=== PATIENT | female | born 1945 | race Caucasian/White ===

== ENCOUNTER 2017-03-17 08:05 | Observation (INO) | payer OTHER, BC ==
[~2017-03-17] VITALS: Ht 160 cm; Wt 99.6 kg
--- NOTE | ~2017-03-17 | CATHLAB ---
[facility] [address] [place] [address] INVASIVE PROCEDURE REPORT Name: RADHAMANDOASHA PERLA Room #: 218-P [facility] [place] ..#: [id number] Admission: 03/17/17 Attend Phys: Chance Manning Discharge: 03/18/17 Date of : 49 Date of Service: 03/23/17 1033 Report #: [id number] THIS REPORT FOR: //name// CC: Chance Rankin DATE OF SERVICE: 03/17/2017 PROCEDURE INDICATION: This is a 72-year-old female patient with cardiomyopathy, optimized on guideline-directed medical therapy for greater than 3 months with ejection fraction persisting at 135% with dyspnea, fatigue and tiredness. PROCEDURES: 1. Left coronary angiography. 2. Biventricular pacer ICD implantation. 3. Supervision of conscious sedation. HAND KISS SETTER: Chance Rajput M.D. BRIEF DESCRIPTION OF PROCEDURE: After informed consent was obtained, the patient was brought to the cardiac catheterization laboratory in stable condition. The right groin was prepped and draped in usual sterile manner and an angiography was performed of the left coronary ostium demarcating a ____ venous component to identify the origin of the coronary sinus ostium. Subsequent to this, the chest had been prepped and draped in sterile manner and a venogram was performed of the left upper extremity to identify the subclavian vein after several attempts without venography failed. Subsequent to identifying the subclavian vein, had 3 separate puncturing using micropuncture and a Seldinger technique, bloodless sheaths were placed. Under fluoroscopic visualization, a [employer] right ventricular lead, model 7122Q-58, serial #[id number] was positioned in the right ventricular septum and secured with active fixation. Capture and sensing thresholds were verified and will be documented below. Subsequent to this, a guiding catheter was then advanced and the coronary ostium was cannulated. Injection with contrast demonstrated a coronary sinus venogram and identified the cardiac veins. Subsequent to this, under fluoroscopic visualization, utilizing standard technique and equipments, a [employer] left ventricular quadripolar lead, model #1458Q-86, serial #[id number] was then placed at capturing and sensing thresholds. Once this was in place and the peel-away sheath was removed, the right atrial lead was then engaged into the right atrial appendage. This was a [employer] model 2088TC-46, serial #[id number] with adequate capture and sensing thresholds. A pocket was then developed and the generator was a [employer] model QS3972-48O, serial #[id number]. Pocket skin, device and leads were all irrigated with an antibiotic solution prior to placement in the pocket. All bleeders were then cauterized prior to this. Pocket was then closed in 3-layer fashion with the deeper two layer being running locking nonabsorbable suture and the skin being closed with [address] [address] INVASIVE PROCEDURE REPORT Name: RADHAMANDO PERLA Room #: 218-P DIS IN M.R.#: [id number] Admission: 03/17/17 Attend Phys: Chance Manning Discharge: 03/18/17 Date of : 49 Date of Service: 03/23/17 1033 Report #: [id number] 3-0 running subcuticular. Steri-Strips, 4 x 4's, Op-Site was then placed. The patient tolerated the procedure well. There were no complications. ESTIMATED BLOOD LOSS: 10 mL. FINDINGS: 1. Right atrial lead: P-wave 4.1 millivolts, impedance 503 ohms, threshold 0.5 volts at a pulse width of 0.5 milliseconds. 2. Right ventricular lead: R-wave 14.8, impedance 744 ohms, threshold 1, pulse width 0.5. 3. Left ventricular lead: Impedance 749, capture threshold of 1 at a pulse width of 0.5. Those were direct measurements, which were then rechecked after closing. The recheck demonstrated a right atrial, right ventricular and left ventricular thresholds of 0.75, 0.5 and 0.5 respectively at pulse width of 0.5. Impedances remained satisfactory. MODE SETTINGS: DDDR with maximum VT cut offs at 171, 187 and VF at 214. The base and maximum sensory rates were 60 and 120. By: [id number] Chance Rajput MD /nt
[~2017-03-17 08:05] MED LIST: ALDACTONE25 MG PO; ATORVASTATIN CA40 MG PO; BENICAR40 MG PO; COREG25 MG PO; COZAAR 50 MG TA50 M2 PO; EFFEXOR XR75 MG PO; HAIR, SKIN & N1 EAC1 PO; LEXAPRO 10 MG T10 M2 PO; NEXIUM 40 MG CA40 M1 PO; NEXIUM40 MG PO; SLOW FE 160MG160 MG PO; TOPROL XL50 MG PO
[2017-03-17] MEDS ORDERED: IMDUR 30 MG TAB30 M1 PO (08:50)
[2017-03-17] MEDS ORDERED: ASPIRIN325 PO (08:51)
[2017-03-17 09:04] VITALS: BP 127/73
[2017-03-17 09:08] LABS: HEMATOCRIT 37.8 % (37.0-47.0); HEMOGLOBIN 13.3 gm/dL (12.0-15.0); MCH 32.6 pg (26.0-34.0); MCHC 35.1 g/dL (28.0-37.0); RBC 4.07 mil/uL (4.20-5.00); RDW 13.2 % (10.5-14.5)
[2017-03-17 09:16] LABS: CALCIUM 8.7 mg/dL (8.5-10.1); CREATININE 0.9 mg/dL (0.6-1.0); POTASSIUM 4.2 mmol/L (3.5-5.1)
[2017-03-17 09:26] LABS: APTT 33.1 Seconds (24.5-32.8); PROTIME 10.5 Seconds (9.3-11.4)
[2017-03-17 19:09] VITALS: BP 115/59
[2017-03-17 23:45] VITALS: BP 105/60
[2017-03-18 03:32] VITALS: BP 113/60
[2017-03-18 03:56] LABS: CALCIUM 8.5 mg/dL (8.5-10.1); CREATININE 0.8 mg/dL (0.6-1.0); POTASSIUM 3.9 mmol/L (3.5-5.1)
[2017-03-18 04:11] LABS: ABSOLUTE NEUTROPHILS 3.3 thou/uL (1.4-8.2); BASOPHILS 0.2 % (0.0-2.0); HEMATOCRIT 36.6 % (37.0-47.0); HEMOGLOBIN 12.2 gm/dL (12.0-15.0); LYMPHOCYTES 33.7 % (24.0-44.0); MCH 31.2 pg (26.0-34.0); MCHC 33.2 g/dL (28.0-37.0); MONOCYTES 8.5 % (1.0-8.0); PLATELET COUNT 237 thou/uL (150-400); POLYS 55.6 % (36.0-66.0); RDW 13.2 % (10.5-14.5)
[2017-03-18 04:15] LABS: HIV-1 P24 AG Nonreactive (Nonreactive)
[2017-03-18 04:20] LABS: MANUAL DIFF NO
[2017-03-18 08:01] VITALS: BP 120/56
[2017-03-18 08:09] LABS: HEPATITIS C VIRUS AB <0.1 (0.0-0.9)
[2017-03-18 10:51] VITALS: BP 112/57
[2017-03-18 15:44] VITALS: BP 92/50
[2017-03-18 16:13] LABS: HBsAG-EMPLOYEE EXPOSURE Negative (Negative); HCV AB-EMPLOYEE EXPOSURE <0.1 (0.0-0.9)
[2017-03-18 17:04] VITALS: BP 92/50
== END 2017-03-18 18:15 | disposition home or self-care (01) ==
LOC: CATH 08:05 → 2N 16:25
PROVIDERS: Internal Medicine; Nurse Practitioner Gerontology
DX: I42.0 Dilated cardiomyopathy (principal); I11.0 Hypertensive heart disease with heart failure; I50.20 Unspecified systolic (congestive) heart failure; I44.7 Left bundle-branch block, unspecified; I25.10 Atherosclerotic heart disease of native coronary artery without angina pectoris; F32.9 Major depressive disorder, single episode, unspecified; E78.00 Pure hypercholesterolemia, unspecified; G43.909 Migraine, unspecified, not intractable, without status migrainosus; Z87.891 Personal history of nicotine dependence

== ENCOUNTER → 2019-09-27 | Outpatient (CLI) | payer OTHER, BC ==
[~2019-09-27] MED LIST changes: +ASPIRIN325 PO; +IMDUR 30 MG TAB30 M1 PO
== END ==
LOC: SJCVC 11:14
PROVIDERS: ATTEND Internal Medicine
DX: R94.31 Abnormal electrocardiogram [ECG] [EKG] (principal); I42.9 Cardiomyopathy, unspecified; E78.5 Hyperlipidemia, unspecified; I11.0 Hypertensive heart disease with heart failure; I50.20 Unspecified systolic (congestive) heart failure; E78.00 Pure hypercholesterolemia, unspecified; G43.909 Migraine, unspecified, not intractable, without status migrainosus; Z90.49 Acquired absence of other specified parts of digestive tract; Z90.710 Acquired absence of both cervix and uterus; Z79.899 Other long term (current) drug therapy; Z87.891 Personal history of nicotine dependence

== ENCOUNTER → 2020-04-23 | Outpatient (CLI) | payer OTHER, BC | LOC: SJCVCIMAG 07:51 | PROVIDERS: ATTEND Internal Medicine | DX: I08.1 Rheumatic disorders of both mitral and tricuspid valves (principal); I50.9 Heart failure, unspecified; I42.9 Cardiomyopathy, unspecified ==

== ENCOUNTER → 2021-05-12 | Outpatient (CLI) | payer OTHER, BC | LOC: SJCVC 14:19 | PROVIDERS: ATTEND Internal Medicine | DX: R94.31 Abnormal electrocardiogram [ECG] [EKG] (principal); I42.9 Cardiomyopathy, unspecified; I50.22 Chronic systolic (congestive) heart failure; E78.5 Hyperlipidemia, unspecified; I25.10 Atherosclerotic heart disease of native coronary artery without angina pectoris; I11.0 Hypertensive heart disease with heart failure; F32.9 Major depressive disorder, single episode, unspecified; Z79.82 Long term (current) use of aspirin; Z79.899 Other long term (current) drug therapy; Z87.891 Personal history of nicotine dependence; Z72.89 Other problems related to lifestyle ==

== ENCOUNTER → 2021-06-09 | Outpatient (CLI) | payer OTHER, BC | LOC: SJCVC 09:45 | PROVIDERS: ATTEND Internal Medicine | DX: E78.5 Hyperlipidemia, unspecified (principal); I25.10 Atherosclerotic heart disease of native coronary artery without angina pectoris; I50.9 Heart failure, unspecified; I10 Essential (primary) hypertension; F32.9 Major depressive disorder, single episode, unspecified; G43.909 Migraine, unspecified, not intractable, without status migrainosus; Z82.49 Family history of ischemic heart disease and other diseases of the circulatory system; Z87.891 Personal history of nicotine dependence; Z72.89 Other problems related to lifestyle; Z88.8 Allergy status to other drugs, medicaments and biological substances; Z79.82 Long term (current) use of aspirin; Z79.899 Other long term (current) drug therapy ==